=== PATIENT | male | born 1990 | race Caucasian/White ===

== ENCOUNTER 2020-08-04 13:49 | Emergency (ER) | payer OTHER ==
--- NOTE | 2020-08-04 14:15 | ED Physician Documentation ---
History of Present Illness - Stated complaint Stated Complaint: SORE THROAT - Chief complaint Chief Complaint: Heent - History obtained from History obtained from: Patient - Additonal information Additional information: Patient comes emergency department chief complaint of sore throat. He states the sore throat happen started this morning, and that it has been hurting to swallow all day. He states that he has had a little bit of a runny nose and a cough for the last few days as well. Patient has not had any fevers that he knows of, but has noticed some body aches. No other complaints at this time. Patient states he is otherwise healthy and that he has received his first Covid shot States he isAbout a week and a half ago. He states that he has been doing fairly well since this, but is concerned that since he is only had 1 shot, he may have gotten Covid anyway and could pass it to his family. No other complaints at this time. Review of Systems Ten Systems: 10 systems reviewed and negative Constitutional: reports: Reviewed and negative Eyes: reports: Reviewed and negative Ears: reports: Reviewed and negative Nose: reports: Rhinorrhea / runny nose, Congestion Throat: reports: Sore throat Cardiac: reports: Reviewed and negative Respiratory: reports: Cough GI: reports: Reviewed and negative : reports: Reviewed and negative Skin: reports: Reviewed and negative Musculoskeletal: reports: Reviewed and negative Neurologic: reports: Reviewed and negative Psychiatric: reports: Reviewed and negative Endocrine: reports: Reviewed and negative Immunocompromised: reports: Reviewed and negative PD PAST MEDICAL HISTORY - Present Medications Home Medications: Ambulatory Orders Medication Instructions Recorded Confirmed No Known Home Medications 08/04/20 08/04/20 - Allergies Allergies/Adverse Reactions: Allergies Allergy/AdvReac Type Severity Reaction Status Date / Time No Known Drug Allergies Allergy Verified 08/04/20 13:54 - Social History Does the pt smoke?: No Smoking Status: Never smoker PD ED PE NORMAL - Vitals Vital signs reviewed: Yes - General General: Alert and oriented X 3, No acute distress, Well developed/nourished - HEENT HEENT: Atraumatic, PERRL, EOMI, Moist mucous membranes, Other (Erythema of posterior pharynx without enlargement of tonsils or exudates.) - Neck Neck: Supple, no meningeal sign, No adenopathy - Cardiac Cardiac: RRR, No murmur, Strong equal pulses - Respiratory Respiratory: No respiratory distress, Clear bilaterally - Abdomen Abdomen: Soft, Non tender, Non distended - Derm Derm: Normal color, Warm and dry, No rash - Extremities Extremities: No deformity - Neuro Neuro: Alert and oriented X 3, stock repairer 2-12 intact, Normal speech - Psych Psych: Normal mood, Normal affect Results - Vitals Vitals: Vital Signs - 24 hr 08/04/20 13:54 Temperature 36.5 C Heart Rate 76 Respiratory 19 Rate Blood Pressure 146/85 H O2 Saturation 100 Oxygen O2 Source Room air - Labs Labs: Laboratory Tests 08/04/20 13:57 Group A Strep Rapid Negative PD MEDICAL DECISION MAKING - ED course Complexity details: reviewed results, re-evaluated patient, considered differential, d/w patient ED course: Patient was tested for both strep and Covid in the emergency department. I informed the patient that his Covid test would not be back until sometime tomorrow, and that he would be notified if the test was positive. Departure - Departure Disposition: 01 Home, Self Care Clinical Impression: Pharyngitis Qualifiers: Pharyngitis/tonsillitis etiology: unspecified etiology Qualified Code(s): J02.9 - Acute pharyngitis, unspecified Condition: Stable Instructions: ED Pharyngitis Viral Comments: Your strep test is negative. Your Covid test is pending at this time, though as we have discussed, it is unlikely that you have contracted this, having already started your vaccination series. The results should be back in about 24 hours, and you will be contacted if it is positive. You may take ibuprofen and Tylenol if needed for the throat discomfort, as well as natural remedies such as hot tea and honey. The symptoms will be expected to resolve on their own in the next week or so.
[2020-08-04 14:20] LABS: RAPID STREP SCREEN Negative (Negative)
[2020-08-04 14:44] VITALS: BP 140/75
== END 2020-08-04 14:50 | disposition home or self-care (01) ==
LOC: ED 13:49
DX: J02.8 Acute pharyngitis due to other specified organisms (principal); Z20.822 Contact with and (suspected) exposure to COVID-19
CPT/HCPCS: 87070; 87430; 99283